=== PATIENT | male | born 2000 ===

== ENCOUNTER 2023-06-10 13:01 | Observation (INO) | payer OTHER ==
[2023-06-10] VITALS (13 sets, daily range): BP systolic 115–133; BP diastolic 57–76; PULSE 55–76; TEMP 97.5–98.5
[~2023-06-10] VITALS: Ht 177.8 cm; Wt 72.0 kg
--- NOTE | 2023-06-10 13:24 | NUR ---
Patient admitted to medical unit, transferred via EMS from [facility]. C/O chest pressure rated 6/10, denies shortness of breath or nausea. Tele placed, verbal order per Dr. Nunn. Heparin drip infusing from [facility] at 800units/hr. Pt states he has had on and off chest pressure for a few months, has an appointment to see a conference concierge but was unable to get in until July. Steady on feet, alert and oriented x4. Dr. Vail consulted, notified of consult. Bed in lowest position with call light within reach.
[2023-06-10 15:04] LABS: CHOLESTEROL RISK RATIO 2.9; MAGNESIUM 2.2 mg/dL (1.6-2.6)
[2023-06-10 15:11] LABS: TROPONIN-I 0.02 ng/mL (0.00-0.033)
--- NOTE | 2023-06-10 15:19 | NUR ---
Discussed heparin drip with pharmacist. Due to labwork being done upon admission with 800units/hr before orders for 850units/hr, recommends decreasing from 800 to 650units/hr. Recheck hep Xa in 6 hours. See orders.
[2023-06-10 15:30] LABS: PARTIAL THROMBOPLASTIN TIME 109.4 SECONDS (26.0-37.0)
--- NOTE | 2023-06-10 15:32 | NUR ---
Dr. Nunn notified of critical lab value at 1533.
--- NOTE | 2023-06-10 18:08 | NUR ---
Patient resting in bed. Denies chest pain at this time, says "it is gone". Patient aware of the plan of care, aware he will be NPO at midnight. Tolerated dinner well, denies nausea. Bed in lowest position, call light within reach. Denies further needs at this time.
[2023-06-10 18:32] LABS: CALCIUM 8.7 mg/dL (8.4-10.2); CREATININE, serum 0.99 mg/dL (0.72-1.25); POTASSIUM 3.6 mmol/L (3.5-4.5)
--- NOTE | 2023-06-10 19:00 | NUR ---
RECEIVED CHANGE OF SHIFT REPORT FROM DAY SHIFT RN.
[2023-06-11] VITALS (16 sets, daily range): BP systolic 109–164; BP diastolic 52–90; PULSE 51–91; TEMP 97.8–98.7
--- NOTE | 2023-06-11 01:19 | NUR ---
SON CALLED PATIENT AND ALSO SPOKE WITH NURSING REGARDING PATIENT STATUS AND THAT PATIENT HAD SOME C/O NAUSEA AND EMESIS. SON REPORTED THAT HE HAS NOT SPOKE WITH ANY PROVIDERS REGARDING HIS MOTHER'S CARE AND HAS CONCERNS AND QUESTIONS REGARDING HER PROGRESS AND PROGNOSIS. SON REQUESTING TO SPEAK WITH PROVIDERS IN THE MORNING.
[2023-06-11 03:55] LABS: BASO # 0.1 K/mm3 (0.0-0.2); EOS # 0.1 K/mm3 (0.0-0.7); EOS % 0.8 % (0.0-4.0); GRAN # 3.3 K/mm3 (1.4-6.5); GRAN % 53.1 % (42.2-75.2); HEMATOCRIT 43.3 % (42.0-52.0); HEMOGLOBIN 14.8 g/dl (13.5-18.0); LYMPH # 2.3 K/mm3 (1.2-3.4); LYMPH % 37.2 % (20.0-51.0); MEAN CELL VOLUME 80 fl (80.0-100.0); MEAN CORPUSCULAR HEMOGLOBIN 27 pg (27-31); MEAN CORPUSCULAR HGB CONC 34 g/dl (33.0-37.0); MEAN PLATELET VOLUME 10.2 fl (7.4-10.4); MONO # 0.5 K/mm3 (0.1-0.6); MONO % 7.7 % (1.7-9.3); PLATELET COUNT 161 K/mm3 (130-400); RED BLOOD COUNT 5.41 M/mm3 (4.20-5.60); REDCELL DISTRIBUTION WIDTH-CV 12.4 % (11.5-14.5)
[2023-06-11 04:19] LABS: ALBUMIN 3.6 gm/dL (3.5-5.0); CALCIUM 8.7 mg/dL (8.4-10.2); CREATININE, serum 0.97 mg/dL (0.72-1.25); MAGNESIUM 2.1 mg/dL (1.6-2.6); PHOSPHOROUS 3.8 mg/dL (2.3-4.7); POTASSIUM 3.8 mmol/L (3.5-4.5)
--- NOTE | 2023-06-11 07:27 | NUR ---
CHANGE OF SHIFT REPORT GIVEN TO DAY SHIFT RNJOO.
--- NOTE | 2023-06-11 09:48 | NUR ---
RN INFORMED Sheree MARSHALL THAT PATIENT HAS COMPLETED HIS BECKY SCAN, PER RHONDA Dominique NP NO INTERVENTIONS TODAY FOR PATIENT. PATIENT STILL HAS A HEPARIN DRIP RUNNING. PER ROLLWAY WORKER RN CAN DC HEPARIN DRIP AND HE WILL ROUND THIS AFTERNOON.
[2023-06-11] MEDS ORDERED: IBU400 MG PO (10:26)
--- NOTE | 2023-06-11 12:29 | NUR ---
Initial visit: Bending Press Operator stopped by room on rounds. Pt was resting and content. Pt has no needs right now. Bending Press Operator will follow up as needed.
--- NOTE | 2023-06-11 15:38 | NUR ---
home economics extension worker met with patient to discuss discharge planning. Patient reports he lives in [place]. Patient reports he is , his is Philomena Singh. home economics extension worker requested 's number and was informed she is not in the states at this time. Patient's best point of contact is his sergeant Leivaer, P# [phone]. Patient's primary care physician is Yovany Jacinto and preferred pharmacy is [facility] in [place]. Patient denied any difficulties affording medications. Patient does not have a DPOA-HC and did not wish to complete one during his hospital stay. Patient does not utilize any DME and is independent with [employer]. Patient would like to return home at time of discharge. Discharge plan: Home
--- NOTE | 2023-06-11 16:15 | NUR ---
PATIENT GIVEN DISCHARGE INSTRUCTIONS AND EDUCATION. PATIENT AWARE HE NEEDS TO CALL HIS PCP FOR A FOLLOW UP APT. IV AND TELE REMVOED. PPATIENT TAKEN TO ER ENTRANCE WHERE HE LEFT IN STABLE CONDITION.
== END 2023-06-11 16:00 | disposition home or self-care (01) ==
LOC: MEDICAL 13:01
PROVIDERS: Nurse Practitioner; ADMIT Internal Medicine
DX: R07.89 Other chest pain (principal)
CPT/HCPCS: A9500-JZ; G0378; G0379; J1644; J2785